=== PATIENT | female | born 1970 | race Caucasian/White ===

== ENCOUNTER 2019-05-11 07:38 | Outpatient (CLI) | payer OTHER ==
--- NOTE | 2019-05-11 15:36 | XRAY Report ---
Reason: LOW BACK PAIN Procedure Date: 05/11/2019 Accession Number: [id number] Procedure: XRS - Lumbar Spine 2 View CPT Code: FULL RESULT: EXAM: LUMBOSACRAL SPINE RADIOGRAPHY EXAM DATE: 05/11/2019 07:58 AM. CLINICAL HISTORY: LOW BACK PAIN. COMPARISONS: None. TECHNIQUE: 3 views. FINDINGS: Alignment: Within normal limits. No spondylolisthesis or scoliosis. Bones: Five [id number] lumbar vertebral bodies are present. No acute fractures or suspicious bone lesions. Disks: Moderate to severe narrowing of L5-S1 with endplate sclerosis. Facets: Unremarkable Sacroiliac Joints: Unremarkable. Soft Tissues: The visualized bowel gas pattern is unremarkable. IMPRESSION: No radiographic evidence for acute disease. Moderate to severe degenerative disk height loss at L5-S1. [facility]
== END 2019-05-11 07:39 | disposition home or self-care (01) ==
LOC: DI.S 07:38
PROVIDERS: ATTEND Naturopath
DX: Z00.01 Encounter for general adult medical examination with abnormal findings (principal); M51.37 Other intervertebral disc degeneration, lumbosacral region; Z13.21 Encounter for screening for nutritional disorder; Z13.6 Encounter for screening for cardiovascular disorders; Z13.1 Encounter for screening for diabetes mellitus; Z13.29 Encounter for screening for other suspected endocrine disorder
CPT/HCPCS: 36415; 72100; 80053; 80061; 83036; 84439; 84443; 84481; 85025; 86141

== ENCOUNTER 2019-09-07 07:59 | Outpatient (CLI) | payer OTHER ==
[2019-09-07 11:36] LABS: BASOPHILS % (AUTO) 0.8 %; EOSINOPHILS # (AUTO) 0.1 10^3/uL (0.0-0.7); EOSINOPHILS % (AUTO) 1.8 %; HGB - HEMOGLOBIN 12.9 g/dL (12.0-16.0); LYMPHOCYTES # (AUTO) 1.6 10^3/uL (1.5-3.5); LYMPHOCYTES % (AUTO) 40.9 %; MEAN CORPUSCULAR HEMOGLOBIN 30.4 pg (27.0-31.0); MEAN CORPUSCULAR HGB CONC 33.5 g/dL (32.0-36.0); MEAN CORPUSCULAR VOLUME 90.8 fL (81.0-99.0); MEAN PLATELET VOLUME 11.2 fL (7.9-10.8); MONOCYTES # (AUTO) 0.3 10^3/uL (0.0-1.0); MONOCYTES % (AUTO) 7.7 %; NEUTROPHILS # (AUTO) 1.9 10^3/uL (1.5-6.6); NEUTROPHILS % (AUTO) 48.8 %; PLT - PLATELET COUNT 205 10^3/uL (130-450); RED BLOOD COUNT 4.24 10^6/uL (4.20-5.40); RED CELL DISTRIBUTION WIDTH 12.4 % (12.0-15.0); WHITE BLOOD COUNT 3.8 x10^3/uL (4.8-10.8)
[2019-09-07 12:00] LABS: HB2 TOTAL 12.7 g/dL; HEMOGLOBIN A1C 0.5 g/dL; HEMOGLOBIN A1C % 5.8 % (4.6-6.2); THYROID STIMULATING HORMONE 1.15 uIU/mL (0.34-5.60)
[2019-09-07 12:02] LABS: FREE T4 (FREE THYROXINE) 0.87 ng/dL (0.58-1.64)
[2019-09-14 11:00] LABS: ENDOMYSIAL ANTIBODY SCR IGA NEGATIVE
[2019-09-14 11:01] LABS: IMMUNOGLOBULIN A 204 mg/dL
== END 2019-09-07 08:00 | disposition home or self-care (01) ==
LOC: LAB.S 07:59
PROVIDERS: ATTEND Naturopath
DX: Z13.1 Encounter for screening for diabetes mellitus (principal); Z13.21 Encounter for screening for nutritional disorder; Z13.0 Encounter for screening for diseases of the blood and blood-forming organs and certain disorders involving the immune mechanism; R94.6 Abnormal results of thyroid function studies; R74.8 Abnormal levels of other serum enzymes; R79.89 Other specified abnormal findings of blood chemistry
CPT/HCPCS: 36415; 81599; 82784; 83036; 83516; 84439; 84443; 84481; 85025; 86256

== ENCOUNTER 2020-10-29 07:00 | Outpatient (CLI) | payer OTHER | END 2020-10-29 23:59 | disposition home or self-care (01) | LOC: LAB.R 07:00 | PROVIDERS: ATTEND Physician Assistant Medical | DX: R05 Cough (principal); Z20.822 Contact with and (suspected) exposure to COVID-19 | CPT/HCPCS: 87275; 87276 ==

== ENCOUNTER 2020-10-29 08:25 | Outpatient (CLI) | payer OTHER ==
--- NOTE | 2020-10-29 11:41 | XRAY Report ---
PROCEDURE: Chest 2 View X-Ray INDICATIONS: COUGH TECHNIQUE: 2 view(s) of the chest. COMPARISON: None. FINDINGS: Surgical changes and devices: None. Lungs and pleura: No pleural effusions or pneumothorax. Lungs are clear. Mediastinum: Mediastinal contours are normal. Heart size is normal. Bones and chest wall: No suspicious bony abnormalities. Soft tissues appear unremarkable. IMPRESSION: No acute cardiopulmonary process demonstrated radiographically. Reviewed by: Antonio Yin MD on 10/29/2020 11:40 AM [facility] Approved by: Antonio Yin MD on 10/29/2020 11:40 AM [facility] Station ID: [id number]
== END 2020-10-29 23:59 | disposition home or self-care (01) ==
LOC: DI.S 08:25
PROVIDERS: ATTEND Physician Assistant Medical
DX: R05 Cough (principal); B34.9 Viral infection, unspecified

== ENCOUNTER 2021-02-19 10:46 | Outpatient (CLI) | payer OTHER ==
[2021-02-19 15:37] LABS: ALBUMIN 4.4 g/dL (3.2-5.5); ALBUMIN/GLOBULIN RATIO 1.6 (1.0-2.2); ALKALINE PHOSPHATASE 39 IU/L (42-121); ALT ALANINE AMINOTRANSFERASE 42 IU/L (10-60); AST ASPARTATE AMINOTRANSFERASE 27 IU/L (10-42); BILIRUBIN,TOTAL 1.1 mg/dL (0.2-1.0); BUN - BLOOD UREA NITROGEN 22 mg/dL (6-20); CALCIUM 9.2 mg/dL (8.5-10.3); CARBON DIOXIDE - CO2 27 mmol/L (21-32); CHLORIDE 103 mmol/L (101-111); CHOL/HDL RATIO 3.2 (<4.4); CHOLESTEROL 223 mg/dL; CREATININE 0.6 mg/dL (0.4-1.0); GFR - MDRD 105 (>89); GLUCOSE 87 mg/dL (70-100); HDL CHOLESTEROL 69 mg/dL; LDL CHOLESTEROL,CALCULATED 144 mg/dL; LDL/HDL RATIO 2.1 (<4.4); POTASSIUM 3.6 mmol/L (3.5-5.0); SODIUM 137 mmol/L (135-145); TOTAL PROTEIN 7.2 g/dL (6.7-8.2); TRIGLYCERIDES 49 mg/dL; VLDL CHOLESTEROL 10 mg/dL
[2021-02-19 15:52] LABS: CRP - C-REACTIVE PROTEIN < 1.0 mg/dL (0-1.0)
[2021-02-19 16:46] LABS: RHEUMATOID FACTOR NEGATIVE (Negative)
[2021-02-19 18:30] LABS: BASOPHILS % (AUTO) 0.8 %; EOSINOPHILS # (AUTO) 0.1 10^3/uL (0.0-0.7); EOSINOPHILS % (AUTO) 2.5 %; HCT - HEMATOCRIT 38.5 % (37.0-47.0); HGB - HEMOGLOBIN 12.5 g/dL (12.0-16.0); LYMPHOCYTES # (AUTO) 1.5 10^3/uL (1.5-3.5); LYMPHOCYTES % (AUTO) 36.7 %; MEAN CORPUSCULAR HEMOGLOBIN 29.7 pg (27.0-31.0); MEAN CORPUSCULAR HGB CONC 32.5 g/dL (32.0-36.0); MEAN CORPUSCULAR VOLUME 91.4 fL (81.0-99.0); MEAN PLATELET VOLUME 11.3 fL (7.9-10.8); MONOCYTES # (AUTO) 0.4 10^3/uL (0.0-1.0); NEUTROPHILS % (AUTO) 50.7 %; PLT - PLATELET COUNT 219 10^3/uL (130-450); RED BLOOD COUNT 4.21 10^6/uL (4.20-5.40); RED CELL DISTRIBUTION WIDTH 12.8 % (12.0-15.0)
== END 2021-02-19 10:47 | disposition home or self-care (01) ==
LOC: LAB.S 10:46
PROVIDERS: ATTEND Nurse Practitioner Family
DX: Z00.00 Encounter for general adult medical examination without abnormal findings (principal); E55.9 Vitamin D deficiency, unspecified; E78.5 Hyperlipidemia, unspecified; M79.10 Myalgia, unspecified site
CPT/HCPCS: 36415; 80053; 80061; 82306; 82728; 83721; 85025; 85651; 86038; 86140; 86200; 86430

== ENCOUNTER 2021-02-24 15:46 | Outpatient (CLI) | payer OTHER ==
--- NOTE | 2021-02-24 16:35 | XRAY Report ---
PROCEDURE: Shoulder 3 View BILAT INDICATIONS: LOW BACK PAIN, CERVICALGIA TECHNIQUE: 3 views of each shoulder were acquired. COMPARISON: None. FINDINGS: Bones: No fractures or dislocations. No suspicious bony lesions. Visualized ribs appear intact. Mi ld periarticular osteophyte formation at the bilateral acromioclavicular joints. Soft tissues: No suspicious soft tissue calcifications. IMPRESSION: Osteophytes arthritis. No acute fracture. No osseous lesion. If symptoms and/or clinical suspicion for pathology continue, further assessment with repeat plain films, or advanced imaging (e .g., CT, MRI, or bone scan) is recommended for further assessment. Reviewed by: Blair Bhatia MD on 02/24/2021 4:34 PM PDT Approved by: Blair Bhatia MD on 02/24/2021 4:34 PM PDT Station ID: [id number]
--- NOTE | 2021-02-24 16:35 | XRAY Report ---
PROCEDURE: Thoracic Spine 2 View INDICATIONS: LOW BACK PAIN, CERVICALGIA TECHNIQUE: 3 views of the thoracic spine were acquired. COMPARISON: None. FINDINGS: Bones: No fractures or dislocations. No suspicious bony lesions. Visualized ribs are intact. Mild m ultilevel disc space narrowing and endplate osteophyte formation. Soft tissues: No paravertebral str ipe thickening. IMPRESSION: Multilevel degenerative disc disease. No acute fracture. No osseous lesion. If symptoms and/or clinic al suspicion for pathology continue, further assessment with repeat plain films, or advanced imaging (e.g., CT, MRI, or bone scan) is recommended for further assessment. Reviewed by: Blair Bhatia MD on 02/24/2021 4:34 PM PDT Approved by: Blair Bhatia MD on 02/24/2021 4:34 PM PDT Station ID: [id number]
--- NOTE | 2021-02-24 16:36 | XRAY Report ---
PROCEDURE: Cervical Spine 2 View INDICATIONS: LOW BACK PAIN, CERVICALGIA TECHNIQUE: 3 view(s) of the cervical spine were acquired. COMPARISON: None. FINDINGS: Bones: No fractures or dislocations to the C7 level. The lateral masses of C1 appear intact on the odontoid view. No suspicious bony lesions. Mild multilevel disc space narrowing and endplate osteop hyte formation, worst at C5-C6, indicating degenerative disc disease. Mild facet hypertrophy througho ut the mid and lower cervical spine. Soft tissues: No prevertebral soft tissue swelling. IMPRESSION: Multilevel degenerative disc and facet disease. No acute fracture. No osseous lesion. If symptoms and/or clinical suspicion for pathology continue, further assessment with repeat plain film s, or advanced imaging (e.g., CT, MRI, or bone scan) is recommended for further assessment. Reviewed by: Blair Bhatia MD on 02/24/2021 4:35 PM PDT Approved by: Blair Bhatia MD on 02/24/2021 4:35 PM PDT Station ID: [id number]
--- NOTE | 2021-02-24 16:36 | XRAY Report ---
PROCEDURE: Lumbar Spine 2 View INDICATIONS: LOW BACK PAIN, CERVICALGIA TECHNIQUE: 3 views of the lumbar spine were acquired. COMPARISON: None. FINDINGS: Bones: 5 [id number] vertebrae are present. There is normal bony alignment. No vertebral body compression fractures. No suspicious bony lesions. Mild multilevel endplate osteophytes and disc sp charla narrowing. Facet hypertrophy throughout the mid and lower lumbar spine. Soft tissues: Overlying bowel gas pattern is normal. No suspicious soft tissue calcifications. IMPRESSION: Multilevel degenerative disc and facet disease. No acute fracture. No osseous lesion. If symptoms and/or clinical suspicion for pathology continue, further assessment with repeat plain film s, or advanced imaging (e.g., CT, MRI, or bone scan) is recommended for further assessment. Reviewed by: Blair Bhatia MD on 02/24/2021 4:35 PM PDT Approved by: Blair Bhatia MD on 02/24/2021 4:35 PM PDT Station ID: [id number]
== END 2021-02-24 15:47 | disposition home or self-care (01) ==
LOC: DI.S 15:46
PROVIDERS: ATTEND Nurse Practitioner Family
DX: M19.011 Primary osteoarthritis, right shoulder (principal); M19.012 Primary osteoarthritis, left shoulder; M51.34 Other intervertebral disc degeneration, thoracic region; M51.36 Other intervertebral disc degeneration, lumbar region; M47.816 Spondylosis without myelopathy or radiculopathy, lumbar region; M47.812 Spondylosis without myelopathy or radiculopathy, cervical region; M50.30 Other cervical disc degeneration, unspecified cervical region